=== PATIENT | male | born 1960 | race Caucasian/White ===

== ENCOUNTER 2016-10-14 05:15 | Emergency (ER) | payer OTHER ==
[~2016-10-14] VITALS: Ht 162.6 cm; Wt 95.4 kg
[~2016-10-14 05:15] MED LIST: AMLODIPINE BESYL5 MG PO; ATARAX,VISTARIL50 MG PO; BENTYL20 MG PO; CIPRO500 MG PO; FLAGYL500 MG PO; PERCOCET 5/31 TABLET PO; PLAVIX75 MG PO; PROCTOFOAM15 GM TP; SIMVASTATIN20 MG PO; SYNTHROID150 MCG PO; ZOFRAN ODT4 MG PO
[2016-10-14] MEDS ORDERED: plavix (05:52)
[2016-10-14] MEDS ORDERED: levothyroxine (05:53)
[2016-10-14] MEDS ORDERED: PERCOCET 5/31 TABLET PO (06:11)
[2016-10-14] MEDS ORDERED: MOTRIN400 MG PO (06:11)
[2016-10-14] MEDS ORDERED: FLEXERIL10 MG PO (06:11)
[2016-10-14 06:16] VITALS: BP 148/70
== END 2016-10-14 06:17 | disposition home or self-care (01) ==
LOC: EME 05:15
DX: S39.012A Strain of muscle, fascia and tendon of lower back, initial encounter (principal); M54.31 Sciatica, right side
CPT/HCPCS: 72100; 99281; 99283